=== PATIENT | female | born 1995 | race Caucasian/White ===

== ENCOUNTER 2018-01-25 17:54 | Emergency (ER) | payer BC ==
--- NOTE | 2018-01-25 22:08 | ED ---
Lower Extremity - HPI Summary HPI Summary: This is scribe Aaron Douglas documenting for attending Dr. Jonnie Guzmán MD. A 22 y/o female presents to ED c/o foreign body substance stuck in her uterus. As per triage, "Pt has had period since and has used Tampons x2/day and think she may have one stuck in there". According to the patient, she has a tampon stuck in her. She initially went to ([facility]), but the staff could not find the object. She was then referred to ED as it could be lodged/stuck in uterus. Pt denies any fever or pain, however, she does have abdominal cramps and vaginal bleeding. She believes there is something stuck in her because she experiences some resistance and her tampon is unaccounted for. She noted that this has happened before but she has been able to get it out. Other than the chief complaint, she is otherwise healthy. - History of Current Complaint Chief Complaint: EDOBProblems Stated Complaint: [facility] [employer] [facility] PROBLEM Time Seen by Provider: 01/25/18 20:31 Hx Obtained From: Patient Mechanism Of Injury: Other - Tampon stuck in uterus. Onset/Duration: Still Present Severity Currently: None Pain Intensity: 0 Pain Scale Used: 0-10 Numeric Timing: Constant Location: Other - Uterus/vagina. Character Of Pain: Unable To Describe Associated Signs And Symptoms: Positive: Abdominal Pain - Cramps Aggravating Factor(s): Nothing Alleviating Factor(s): Nothing Able to Bear Weight: Yes - Allergies/Home Medications Allergies/Adverse Reactions: Allergies Allergy/AdvReac Type Severity Reaction Status Date / Time No Known Allergies Allergy Verified 02/08/13 08:59 PMH/Surg Hx/FS Hx/Imm Hx Endocrine/Hematology History: Denies: Hx Diabetes Cardiovascular History: Denies: Hx Hypertension Respiratory History: Reports: Hx Asthma - HX OF EXERTIONAL ALLERGY- INHALER PRN , Other Respiratory Problems/Disorders Sensory History: Denies: Hx Contacts or Glasses, Hx Hearing Aid Opthamlomology History: Denies: Hx Contacts or Glasses Infectious Disease History: No Infectious Disease History: Denies: Traveled Outside the [place] in Last 30 Days - Family History Known Family History: Negative: Hypertension, Diabetes - Social History Alcohol Use: Weekly Substance Use Type: Reports: None Smoking Status (MU): Light Every Day Tobacco Smoker Review of Systems Negative: Fever, Chills Negative: Erythema Negative: Sore Throat Negative: Chest Pain Negative: Shortness Of Breath, Cough Positive: Abdominal Pain - Cramps. Negative: Vomiting, Nausea Positive: discharge - Bleeding. Negative: dysuria, hematuria Negative: Myalgia, Edema Negative: Rash Neurological: Other - NEGATIVE: Dizziness All Other Systems Reviewed And Are Negative: Yes Physical Exam - Summary Physical Exam Summary: Constitutional: Well-developed, Well-nourished, Alert. (-) Distressed Skin: Warm, Dry HENT: Normocephalic; Atraumatic Eyes: Conjunctiva normal Neck: Musculoskeletal ROM normal neck. (-) JVD, (-) Stridor, (-) Tracheal deviation Cardio: Rhythm regular, rate normal, Heart sounds normal; Intact distal pulses; The pedal pulses are 2+ and symmetric. Radial pulses are 2+ and symmetric. (-) Murmur Pulmonary/Chest wall: Effort normal. (-) Respiratory distress, (-) Wheezes, (-) Rales Abd: Soft, (-) epigastric tenderness, (-) Distension, (-) Guarding, (-) Rebound Musculoskeletal: (-) Edema Lymph: (-) Cervical adenopathy Neuro: Alert, Oriented x3 Psych: Mood and affect Normal PELVIC EXAM: Maria Del Carmen in attendance. Could not identify any foreign body. Triage Information Reviewed: Yes Vital Signs On Initial Exam: Initial Vitals Temp Pulse Resp BP Pulse Ox 97.6 F 70 16 122/74 98 01/25/18 17:57 01/25/18 17:57 01/25/18 17:57 01/25/18 17:57 01/25/18 17:57 Vital Signs Reviewed: Yes Diagnostics - Vital Signs Vital Signs Temp Pulse Resp BP Pulse Ox 01/25/18 21:03 114/72 01/25/18 20:35 69 100 01/25/18 20:33 67 116/86 99 01/25/18 20:00 98.5 F 62 18 120/70 100 01/25/18 17:57 97.6 F 70 16 122/74 98 - Laboratory Lab Statement: Any lab studies that have been ordered have been reviewed, and results considered in the medical decision making process. - Ultrasound No standard instances Ultrasound Interpretation Completed By: Radiologist - TRANSVAGINAL US: Sonographically normal uterus and ovaries. No misplaced tampon. Lower Extremity Course/Dx - Course Course Of Treatment: A 22 y/o female presents to ED c/o foreign body substance stuck in her uterus. As per triage, "Pt has had period since and has used Tampons x2/day and think she may have one stuck in there". According to the patient, she has a tampon stuck in her. She initially went to ([facility]), but the staff could not find the object. She was then referred to ED as it could be lodged/stuck in uterus. Pt denies any fever or pain, however, she does have abdominal cramps and vaginal bleeding. A Transvaginal US revealed sonographically normal uterus and ovaries. No misplaced tampon. In the ED course , the patient recieved no medications. Patient will be discharged with a diagnosis Menses. Patient is to follow up with [facility] in 2- 3 days. Patient is also follow up with [facility] in 2-3 days. Patient is to return to ED for any foul order or discharge or fever. Patient is agreeable with this plan. - Diagnoses Provider Diagnoses: Menses painful Discharge - Sign-Out/Discharge Documenting (check all that apply): Patient Departure - DISCHARGE - Discharge Plan Condition: Stable Disposition: HOME Patient Education Materials: Vaginal Discharge (ED) Referrals: Braulio Cooper MD [Medical Doctor] - 3 Days Mago Dunn MD [Primary Care Provider] - () [facility] [Outside] - 3 Days Additional Instructions: FOLLOW UP WITH [facility] IN 2-3 DAYS. ALSO FOLLOW UP WITH [facility] [employer] [facility] [facility] IN 2-3 DAYS. RETURN TO ED FOR ANY FOUL ODOR, VAGINAL DISCHARGE OR FEVER. RETURN TO ED FOR ANY NEW OR WORSENING SYMPTOMS.
[2018-01-25 22:42] VITALS: BP 106/76
--- NOTE | 2018-01-26 07:36 | RAD ---
INDICATION: Pelvic cramping and "lost tampon" since January 23, 2018 COMPARISON: None. TECHNIQUE: Real-time transabdominal and transvaginal ultrasound examination of the female pelvis including grayscale and Doppler color flow imaging. FINDINGS: Uterus: The uterus is normal in size and echogenicity measuring 6.6 x 2.8 x 3.6 cm. The endometrial stripe is smooth and uniform measuring 5 mm in thickness. No tampon or other foreign body is visualized. Ovaries: The right and left ovary measure 2.8 x 2.0 x 2.0 cm and 3.7 x 2.2 x 2.3 cm, respectively. Normal arterial and venous waveforms are identified. Appearance is within normal limits for the patient's age. There is no free fluid in the cul-de-sac. IMPRESSION: Normal and age-appropriate pelvic ultrasound. No tampon or other foreign body is visualized.
== END 2018-01-25 22:42 | disposition home or self-care (01) ==
LOC: ED 17:54
DX: N94.6 Dysmenorrhea, unspecified (principal); Z72.0 Tobacco use
CPT/HCPCS: 76830; 99282